=== PATIENT | male | born 1955 | race Caucasian/White ===

== ENCOUNTER 2016-12-12 19:24 | Emergency (ER) | payer OTHER ==
[~2016-12-12] VITALS: Ht 180.3 cm; Wt 72.5 kg
[2016-12-12 19:32] VITALS: BP 104/78; PULSE 104; RESP 18; TEMP 99.5; O2SAT 95
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
--- NOTE | 2016-12-12 20:56 | PD ---
Physical Exam Time Seen by Provider: 20:40 Data Data Last Documented VS Vital Signs Date Time Temp Pulse Resp B/P (MAP) Pulse Ox O2 Delivery O2 Flow Rate FiO2 12/12/16 19:36 104 18 96 Room Air 12/12/16 19:32 99.5 104/78 (87) Orders Orders Ct Brain W/O Iv Contrast(Rout) (12/12/16 19:30) Ct Cerv Spine W/O Contrast (12/12/16 19:30) Ct Facial Bones W/O Iv Cont (12/12/16 19:30) MDM Supervised Visit with ALONSO: Yes Narrative Course I was asked by Dr. Man to repair laceration on this patient. Please see his note for further details. Procedures Procedure Narrative LACERATION LOCATION: Left eyebrow LENGTH: 2 cm NUMBER OF STITCHES/[place]: 5 simple interrupted REPAIR: The area of the laceration was prepped with Betadine and sterilely draped. The laceration was infiltrated with 1% lidocaine. The wound was copiously irrigated and explored without evidence of foreign body, tendon injury or neurovascular injury. The wound was closed using 6-0 Prolene. This was a single layer repair. A sterile dressing was applied. The patient was advised to keep the dressing clean and dry. Patient tolerated the procedure well. Scripts No Active Prescriptions or Reported Meds Linda Churchill Dec 12, 2016 20:56
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
[2016-12-12 21:25] VITALS: BP 114/70; PULSE 88; RESP 18; O2SAT 96
== END 2016-12-12 21:32 ==
LOC: PHED 19:24
DX: S01.112A Laceration without foreign body of left eyelid and periocular area, initial encounter (principal); S80.212A Abrasion, left knee, initial encounter; S80.211A Abrasion, right knee, initial encounter; Z72.0 Tobacco use; Z86.59 Personal history of other mental and behavioral disorders; Z87.09 Personal history of other diseases of the respiratory system; Y04.0XXA Assault by unarmed brawl or fight, initial encounter
CPT/HCPCS: 12011; 70450; 70486; 72125